=== PATIENT | female | born 1995 | race Caucasian/White ===

== ENCOUNTER 2018-07-21 19:42 | Emergency (ER) | payer BC ==
[2018-07-21 19:43] VITALS: BMI 40.4
[2018-07-21 19:50] VITALS: BP 131/87; PULSE 68; RESP 18; TEMP 98.1; O2SAT 97
--- NOTE | 2018-07-21 20:17 | C.PDOC ---
History Of Present Illness 22 yo female come in for evaluation of suture site after had 4 weeks ago. Pt reports, noted some opening over the suture line. Otherwise, pt denies fever, chills, abd. pain, V/D, wound discharge, redness, denies any complication during or after the surgery, or any other active complaints. Ambulate to Ed for evaluation, not in any apparent distress. Time Seen by Provider: 07/21/18 19:55 Chief Complaint (Nursing): Abnormal Skin Integrity History Per: Patient Past Medical History Reviewed: Historical Data, Nursing Documentation, Vital Signs Vital Signs: Last Vital Signs Temp 98.1 F 07/21/18 19:47 Pulse 68 07/21/18 19:47 Resp 18 07/21/18 19:47 BP 131/87 07/21/18 19:47 Pulse Ox 97 07/21/18 19:47 - Medical History PMH: No Chronic Diseases Denies: Depression, Diabetes, HTN, Chronic Kidney Disease Surgical History: (4 wks ago) - [facility] Procedures EXTRACTION OF POC, LOW CERVICAL, OPEN APPROACH (06/23/18) Family History: States: Unknown Family Hx - Social History Hx Tobacco Use: No Hx Alcohol Use: No Hx Substance Use: No - Immunization History Hx Tetanus Toxoid Vaccination: No Hx Influenza Vaccination: No Hx Pneumococcal Vaccination: No Review Of Systems Except As Marked, All Systems Reviewed And Found Negative. Constitutional: Negative for: Fever, Chills Gastrointestinal: Negative for: Nausea, Vomiting, Abdominal Pain, Diarrhea Genitourinary: Negative for: Dysuria, Frequency Skin: Positive for: Lesions. Negative for: Rash Neurological: Negative for: Weakness, Numbness, Headache, Dizziness Physical Exam - Physical Exam Appears: Well, Non-toxic, No Acute Distress Skin: Normal Color, Warm, No Rash Head: Normacephalic Eye(s): bilateral: PERRL Gastrointestinal/Abdominal: Soft, No Tenderness, No Distention, No Guarding, Other (well healing insicion line suprapubic area with small, superificial 0.5 cm opening in middle. NO edema, no erythema, no proximal streaking, no discharge .) Back: No CVA Tenderness Extremity: Normal ROM, No Deformity, No Swelling Neurological/Psych: Oriented x3, Normal Speech ED Course And Treatment O2 Sat by Pulse Oximetry: 97 Pulse Ox Interpretation: Normal Progress Note: On re-eval, pt is afebrile, hemodynamicaly stable. NOn-toxic. Abd: benign, (-) guaridng, (-) rebound. Insicion line appears clean, dry, intact, with small opening. No evidence of cellulitis, (-) flactulance. Pt advised on wound care. ref. to f/u with OB in 1-2 days for re-eval. Disposition Counseled Patient/Family Regarding: Diagnosis, Need For Followup, Rx Given - Disposition Referrals: Manny Guardado MD [Staff Provider] - Disposition: HOME/ ROUTINE Disposition Time: 20:13 Condition: STABLE Additional Instructions: keep wound dry, c;lean Apply antibiotic cream daily Follow up with OB in 2-3 days for re-evaluation. return to ED if any worsening or new changes. Prescriptions: Mupirocin 2% Cream [Bactroban Cream] 1 applic TOP BID #1 tube Instructions: Surgical Wound (DC) - Clinical Impression Clinical Impression: Encounter for wound re-check
== END 2018-07-21 20:33 | disposition home or self-care (01) ==
LOC: C.ER 19:42
DX: Z48.89 Encounter for other specified surgical aftercare (principal)